=== PATIENT | female | born 1965 | race American Indian/Alaskan Native ===

== ENCOUNTER 2017-02-10 09:39 | Emergency (ER) | payer SELFPAY ==
[2017-02-10 09:48] VITALS: BP 145/77
[2017-02-10] MEDS ORDERED: TORADOL IM ONE (10:53)
--- NOTE | 2017-02-10 15:24 | Emergency Department Report ---
Entered by JEISON SAGE, acting as scribe for HORTENSIA ORELLANA NP. ED Extremity Problem HPI - General Chief complaint: Extremity Problem,Nontraumatic Stated complaint: BILAT KNEE PAIN Time Seen by Provider: 02/10/17 10:16 Source: patient Mode of arrival: Ambulatory Limitations: Physical Limitation - History of Present Illness Initial comments: This is a 51 y/o female patient presents to the ED for evaluation of intermittent bilateral knee pain ongoing for the past month, with the pain becoming worse last night. Pain is exacerbated with weight bearing. She was previously seen at [facility] by Dr. Mathias who ordered x-rays and evaluation of bilateral knee pain. Xray reports states degenerative changes medial, lateral, and patellofemoral compartments right left knee being more pronounced in the left knee. She was told she would likely need to undergo knee replacement surgery. Patient denies following up with her orthopedic doctor. She was prescribed pain medication but she does not remember the name of the medication. Additionally she states the pain was not relieved by this medication. She denies recent surgeries, travels, or long car rides. Denies history of renal failure. No allergies or past medical history reported. She denies following up with an orthopedic physician for symptoms. She denies chest pain, calf pain, fever, chills. swelling, numbness, tingling, stiff neck, headache, abd pain, back pain, trauma, or SOB. No injuries reported and she is ambulating with a cane. MD Complaint: extremity pain -: Gradual, month(s) (1), Last night (worse) Location: bilateral lower extremity, knee -: No myalgia, No fever, No associated dyspnea, No associated chest pain Radiation: none Severity scale (0 -10): 7 Quality: aching Consistency: intermittent Improves with: nothing Worsens with: weight bearing Associated Symptoms: denies other symptoms. denies: chest pain, shortness of breath, fever, myalgias, arthralgias, rash - Related Data Previous Rx's Medication Instructions Recorded Last Taken Type Azithromycin [Zithromax] 500 mg PO QDAY #2 tablet 12/21/13 Unknown Rx Hydrochlorothiazide 25 mg PO QDAY #7 tablet 12/21/13 Unknown Rx Ondansetron [Zofran Odt] 4 mg SL Q6H PRN #8 tab.rapdis 12/21/13 Unknown Rx Oxycodone HCl/Acetaminophen 1 each PO Q6HR PRN #16 tablet 12/21/13 Unknown Rx [Percocet 10-325 mg] metroNIDAZOLE [Flagyl] 500 mg PO Q8H #21 tablet 12/21/13 Unknown Rx Ibuprofen [Motrin 600 MG tab] 600 mg PO Q8H PRN #20 tablet 02/10/17 Unknown Rx Allergies Allergy/AdvReac Type Severity Reaction Status Date / Time No Known Allergies Allergy Verified 02/10/17 09:44 ED Review of Systems Comment: All other systems reviewed and negative Constitutional: no symptoms reported. denies: chills, fever Eyes: denies: eye pain, eye discharge, vision change ENT: denies: ear pain, throat pain Respiratory: no symptoms reported. denies: cough, shortness of breath Cardiovascular: denies: chest pain Endocrine: no symptoms reported Gastrointestinal: denies: abdominal pain, nausea, diarrhea Genitourinary: denies: urgency, dysuria, discharge Musculoskeletal: denies: back pain, joint swelling, arthralgia Skin: denies: rash, change in color Neurological: denies: headache, weakness Psychiatric: denies: anxiety, depression Hematological/Lymphatic: denies: easy bleeding, easy bruising ED Past Medical Hx - Surgical History Additional Surgical History: - Social History Smoking Status: Never Smoker Substance Use Type: None - Medications Home Medications: Home Medications Medication Instructions Recorded Confirmed Last Taken Type Azithromycin [Zithromax] 500 mg PO QDAY #2 tablet 12/21/13 Unknown Rx Hydrochlorothiazide 25 mg PO QDAY #7 tablet 12/21/13 Unknown Rx Ondansetron [Zofran Odt] 4 mg SL Q6H PRN #8 tab.rapdis 12/21/13 Unknown Rx Oxycodone HCl/Acetaminophen 1 each PO Q6HR PRN #16 tablet 12/21/13 Unknown Rx [Percocet 10-325 mg] metroNIDAZOLE [Flagyl] 500 mg PO Q8H #21 tablet 12/21/13 Unknown Rx Ibuprofen [Motrin 600 MG tab] 600 mg PO Q8H PRN #20 tablet 02/10/17 Unknown Rx ED Physical Exam - General Limitations: Physical Limitation General appearance: alert, in no apparent distress - Head Head exam: Present: atraumatic, normocephalic, normal inspection - Eye Eye exam: Present: normal appearance, PERRL, EOMI. Absent: scleral icterus, conjunctival injection, nystagmus, periorbital swelling, periorbital tenderness Pupils: Present: normal accommodation - ENT ENT exam: Present: normal exam, normal orophraynx, TM's normal bilaterally, normal external ear exam. Absent: mucous membranes dry, mucous membranes moist - Neck Neck exam: Present: normal inspection, full ROM. Absent: tenderness, meningismus, lymphadenopathy, thyromegaly - Respiratory Respiratory exam: Present: normal lung sounds bilaterally. Absent: respiratory distress, wheezes, rales, rhonchi, stridor, chest wall tenderness, accessory muscle use, decreased breath sounds, prolonged expiratory - Cardiovascular Cardiovascular Exam: Present: regular rate, normal rhythm, normal heart sounds. Absent: bradycardia, tachycardia, irregular rhythm - GI/Abdominal GI/Abdominal exam: Present: soft, normal bowel sounds. Absent: distended, tenderness, guarding, rebound, rigid - Rectal Rectal exam: Present: deferred - Extremities Exam Extremities exam: Present: normal inspection, full ROM, normal capillary refill. Absent: tenderness, pedal edema, joint swelling, calf tenderness - Expanded Lower Extremity Exam Left Hip exam: Present: normal inspection (bilateal exam), full ROM, pelvic stability. Absent: tenderness, swelling, abrasion, laceration, ecchymosis, deformity, crepidus, dislocation, erythema, external rotation, internal rotation , shortening Upper Leg exam: Present: normal inspection (bilateral exam), full ROM. Absent: tenderness, swelling, abrasion, laceration, ecchymosis, deformity, crepidus, dislocation, erythema Knee exam: Present: normal inspection (bilateral exam), full ROM, full knee extension. Absent: tenderness, swelling, abrasion, laceration, ecchymosis, deformity, crepidus, dislocation, erythema, effusion, pain w/ pronation/ supination, posterior draw sign, pain/laxity with valgus, pain/laxity with varus Lower Leg exam: Present: normal inspection (bilateral exam), full ROM. Absent: tenderness, swelling, abrasion, laceration, ecchymosis, deformity, crepidus, dislocation, erythema, palpable cord, Delano's sign Ankle exam: Present: normal inspection (bilateral exam), full ROM. Absent: tenderness, swelling, abrasion, laceration, ecchymosis, deformity, crepidus, dislocation, erythema, anterior draw sign Foot/Toe exam: Present: normal inspection (bilateral exam), full ROM. Absent: tenderness, swelling, abrasion, laceration, ecchymosis, deformity, crepidus, dislocation, erythema, amputation, puncture wound, foreign body, calcaneal tenderness, tenderness at base of 5th metatarsal, nail avulsion, subungual hematoma Neuro vascular tendon exam: Present: no vascular compromise. Absent: pulse deficit, abnormal cap refill, motor deficit, sensory deficit, extremity cold to touch, pallor, abnormal 2-point discrimination, decreased fine/light touch, foot drop, peroneal nerve deficit, significant pain with passive ROM of distal joint Gait: Positive: observed and limited by pain - Back Exam Back exam: Present: normal inspection, full ROM. Absent: tenderness, CVA tenderness (R), CVA tenderness (L), muscle spasm, paraspinal tenderness, vertebral tenderness, rash noted - Neurological Exam Neurological exam: Present: alert, oriented X3, CN II-XII intact, normal gait, reflexes normal - Psychiatric Psychiatric exam: Present: normal affect, normal mood - Skin Skin exam: Present: warm, dry, intact, normal color ED Course Vital Signs 02/10/17 09:44 Temperature 97.9 F Pulse Rate 80 Blood Pressure 145/77 - Reevaluation(s) Reevaluation #1: 02/10/17 11:28 Patient is able to speak in full sentences with no signs of distress noted. ED Medical Decision Making - Medical Decision Making Ed course: This is a 51-year-old female that presents to the ED c/o of bialteral knee pain] 1- patient was examined by myself. Xray has already been obtained on 01/04/2017 by her PCP. Impression: Degenerative changes. No fractures noted. 2- Patient was instrcuted to RICe therapy and to follow-up with a orthopedic that was referred to the patient in 24 hours or if symptoms such as swelling, joint redness, numbness, tingling, fever, chills, headache, CP, SOB return to the emergency department as soon as possible. 3- Patient received Toradol in the ED and stated pain has significant improved with a level of 2/10 4- patient was d/c with ibuprofen. 5- at time time of discharge, the patient does not seem toxic or ill in appearance. No acute signs of distress noted. Patient agrees to discharge treatment plan of care. No further questions noted by the patient. ED Disposition Clinical Impression: Knee pain, bilateral Qualifiers: Chronicity: chronic Qualified Code(s): M25.561 - Pain in right knee; M25.562 - Pain in left knee; G89.29 - Other chronic pain Disposition: - TO HOME OR SELFCARE Is pt being admited?: No Does the pt Need Aspirin: No Condition: Stable Instructions: Ibuprofen (By mouth), Knee Pain (ED), RICE Therapy (ED) Additional Instructions: follow-up with a orthopedic that was referred to the patient in 24 hours or if symptoms such as swelling, joint redness, numbness, tingling, fever, chills, headache, CP, SOB return to the emergency department as soon as possible. Rest, elevate, ice extremity Take ibuprofen as prescribed as needed for pain Prescriptions: Ibuprofen [Motrin 600 MG tab] 600 mg PO Q8H PRN #20 tablet PRN Reason: Pain Referrals: [facility] [Outside] - 3-5 Days [facility] [Outside] - 3-5 Days PRIMARY [facility]ARE, [Primary Care Provider] - 3-5 Days OBIE SHAHID MD [Staff Physician] - 02/10/17 Forms: Work/School Release Form(ED) This documentation as recorded by the [facility] sherman SHALANE,accurately reflects the service I personally performed and the decisions made by ,HORTENSIA ORELLANA, JORGE.
== END 2017-02-10 12:03 | disposition home or self-care (01) ==
LOC: ED 09:39
DX: M25.562 Pain in left knee (principal); M25.561 Pain in right knee
CPT/HCPCS: 96372; 99282; J1885

== ENCOUNTER 2017-06-26 14:59 | Emergency (ER) | payer OTHER ==
[2017-06-26 15:19] VITALS: BP 154/71
[2017-06-26] MEDS ORDERED: MOTRIN PO ONE (15:34)
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
== END 2017-06-26 18:38 | disposition home or self-care (01) ==
LOC: ED 14:59
DX: S39.012A Strain of muscle, fascia and tendon of lower back, initial encounter (principal); S13.4XXA Sprain of ligaments of cervical spine, initial encounter; V89.2XXA Person injured in unspecified motor-vehicle accident, traffic, initial encounter; Y93.89 Activity, other specified; Y99.8 Other external cause status; Y92.488 Other paved roadways as the place of occurrence of the external cause
CPT/HCPCS: 72040; 72072; 72100; 99282

== ENCOUNTER 2019-06-01 18:05 | Emergency (ER) | payer OTHER ==
[2019-06-01 19:47] VITALS: BP 159/67
--- NOTE | 2019-06-01 19:48 | Event Note ---
ED Screening Note Date of service: 06/01/19 Time: 19:47 ED Screening Note: 53 y o f presents with acute on chronic bilaetral knee pain, states 10/10 pain no ortho visit This initial assessment/diagnostic orders/clinical plan/treatment(s) is/are subject to change based on patients health status, clinical progression and re- assessment by fellow clinical providers in the ED. Further treatment and workup at subsequent clinical providers discretion. Patient/guardian urged not to elope from the ED as their condition may be serious if not clinically assessed and managed. [facility]
[2019-06-01] MEDS ORDERED: KETOROLAC 30 MG/1 ML INJ IM ONE (22:21)
[2019-06-01] MEDS ORDERED: ACETAMINOPHEN 500 MG TAB PO ONE (22:21)
[2019-06-01] MEDS ORDERED: predniSONE 20 MG TAB PO ONE (22:21)
--- NOTE | 2019-06-01 22:52 | Emergency Department Report ---
ED Extremity Problem HPI - General Chief complaint: Extremity Problem,Nontraumatic Stated complaint: BI KNEE PAIN Source: patient Mode of arrival: Ambulatory Limitations: No Limitations - History of Present Illness Initial comments: Patient is a 53-year-old female with a history of chronic polyarticular arthritis, glaucoma and mtl-mzdvcmj-kmqadomme diabetes who p resents to the ED with complaint of acute exacerbation of her chronic knee pain for the last 1 week despite taking xthl-dem-pmwvksd pain medications. Patient denies fall, traumatic injury, numbness or tingling or weakness or lower extremities bilaterally, low back pain, dizziness, heavy lifting, fever and chills. MD Complaint: extremity pain (bilateral knees), joint paint (Bilateral knees) -: Gradual, week(s) (1) Location: bilateral lower extremity (bilateral knee joints) -: Yes arthralgia, No fever, No associated dyspnea, No associated chest pain Radiation: none Severity scale (0 -10): 6 Quality: aching, sharp, constant Consistency: constant Improves with: nothing Worsens with: weight bearing, walking, exertion, palpation Associated Symptoms: denies other symptoms, arthralgias. denies: chest pain, shortness of breath, myalgias - Related Data Previous Rx's Medication Instructions Recorded Last Taken Type Azithromycin [Zithromax] 500 mg PO QDAY #2 tablet 12/21/13 Unknown Rx Ondansetron [Zofran Odt] 4 mg SL Q6H PRN #8 tab.rapdis 12/21/13 Unknown Rx Oxycodone HCl/Acetaminophen 1 each PO Q6HR PRN #16 tablet 12/21/13 Unknown Rx [Percocet 10-325 mg] hydroCHLOROthiazide 25 mg PO QDAY #7 tablet 12/21/13 Unknown Rx [Hydrochlorothiazide] metroNIDAZOLE [Flagyl] 500 mg PO Q8H #21 tablet 12/21/13 Unknown Rx Ibuprofen [Motrin 600 MG tab] 600 mg PO Q8H PRN #20 tablet 02/10/17 Unknown Rx Cyclobenzaprine [Flexeril] 10 mg PO BID PRN #10 tablet 06/26/17 Unknown Rx Ibuprofen [Motrin] 600 mg PO Q8H PRN #30 tablet 06/26/17 Unknown Rx Naproxen 500 mg PO Q12H PRN #30 tablet 06/01/19 Unknown Rx Prednisone [predniSONE 10 mg 10 mg PO .TAPER #21 tab.ds.pk 06/01/19 Unknown Rx (6-Day Pack, 21 Tabs)] traMADol [Ultram] 50 mg PO Q6HR PRN #12 tablet 06/01/19 Unknown Rx Allergies Allergy/AdvReac Type Severity Reaction Status Date / Time No Known Allergies Allergy Verified 02/10/17 09:44 ED Review of Systems ROS: Stated complaint: BI KNEE PAIN Other details as noted in HPI Constitutional: denies: chills, fever Eyes: denies: eye pain, eye discharge, vision change ENT: denies: ear pain, throat pain Respiratory: denies: cough, shortness of breath, wheezing Cardiovascular: denies: chest pain, palpitations Endocrine: no symptoms reported Gastrointestinal: denies: abdominal pain, nausea, diarrhea Genitourinary: denies: urgency, dysuria, discharge Musculoskeletal: arthralgia (bilateral knee pain). denies: back pain, joint swelling Skin: denies: rash, lesions Neurological: denies: headache, weakness, paresthesias Psychiatric: denies: anxiety, depression Hematological/Lymphatic: denies: easy bleeding, easy bruising ED Past Medical Hx - Past Medical History Previous Medical History?: No - Surgical History Past Surgical History?: Yes Additional Surgical History: - Social History Smoking Status: Never Smoker Substance Use Type: None - Medications Home Medications: Home Medications Medication Instructions Recorded Confirmed Last Taken Type Azithromycin [Zithromax] 500 mg PO QDAY #2 tablet 12/21/13 Unknown Rx Ondansetron [Zofran Odt] 4 mg SL Q6H PRN #8 tab.rapdis 12/21/13 Unknown Rx Oxycodone HCl/Acetaminophen 1 each PO Q6HR PRN #16 tablet 12/21/13 Unknown Rx [Percocet 10-325 mg] hydroCHLOROthiazide 25 mg PO QDAY #7 tablet 12/21/13 Unknown Rx [Hydrochlorothiazide] metroNIDAZOLE [Flagyl] 500 mg PO Q8H #21 tablet 12/21/13 Unknown Rx Ibuprofen [Motrin 600 MG tab] 600 mg PO Q8H PRN #20 tablet 02/10/17 Unknown Rx Cyclobenzaprine [Flexeril] 10 mg PO BID PRN #10 tablet 06/26/17 Unknown Rx Ibuprofen [Motrin] 600 mg PO Q8H PRN #30 tablet 06/26/17 Unknown Rx Naproxen 500 mg PO Q12H PRN #30 tablet 06/01/19 Unknown Rx Prednisone [predniSONE 10 mg 10 mg PO .TAPER #21 tab.ds.pk 06/01/19 Unknown Rx (6-Day Pack, 21 Tabs)] traMADol [Ultram] 50 mg PO Q6HR PRN #12 tablet 06/01/19 Unknown Rx ED Physical Exam - General Limitations: No Limitations General appearance: alert, in no apparent distress - Head Head exam: Present: atraumatic, normocephalic, normal inspection - Eye Eye exam: Present: normal appearance, PERRL, EOMI Pupils: Present: normal accommodation - ENT ENT exam: Present: normal exam, normal orophraynx, mucous membranes moist, TM's normal bilaterally, normal external ear exam - Neck Neck exam: Present: normal inspection, full ROM - Respiratory Respiratory exam: Present: normal lung sounds bilaterally. Absent: respiratory distress, wheezes, rales, chest wall tenderness, accessory muscle use, decreased breath sounds - Cardiovascular Cardiovascular Exam: Present: regular rate, normal rhythm, normal heart sounds. Absent: systolic murmur, diastolic murmur, rubs, gallop - GI/Abdominal GI/Abdominal exam: Present: soft, normal bowel sounds. Absent: tenderness, guarding, rebound - Extremities Exam Extremities exam: Present: normal inspection, full ROM, tenderness (bilateral knee tenderness), normal capillary refill. Absent: pedal edema, joint swelling - Back Exam Back exam: Present: normal inspection, full ROM. Absent: tenderness, CVA tenderness (R), CVA tenderness (L), muscle spasm, paraspinal tenderness - Neurological Exam Neurological exam: Present: alert, oriented X3, CN II-XII intact, normal gait, reflexes normal - Psychiatric Psychiatric exam: Present: normal affect, normal mood - Skin Skin exam: Present: warm, dry, intact, normal color. Absent: rash ED Course Vital Signs 06/01/19 19:46 Temperature 98.3 F Pulse Rate 70 Respiratory 18 Rate Blood Pressure 159/67 O2 Sat by Pulse 100 Oximetry - Reevaluation(s) Reevaluation #1: 06/01/19 22:52 This is a 53-year-old [place] female with a history of chronic osteoarthritis who presented to the ED with worsening bilateral knee pain for 1 week. In the ED, patient is alert and oriented 3 and is not in distress. Patient was too difficult pain in the ED on June and medications and advised to follow-up with her primary care physician in 5-7 days for reevaluation or return to the ED immediately if symptoms get worse. ED Medical Decision Making - Medical Decision Making This is a 53-year-old [place] female with a history of chronic osteoarthritis who presented to the ED with worsening bilateral knee pain for 1 week. In the ED, patient is alert and oriented 3 and is not in distress. Patient was too difficult pain in the ED on June and medications and advised to follow-up with her primary care physician in 5-7 days for reevaluation or return to the ED immediately if symptoms get worse. - Differential Diagnosis chronic osteoarthritis; chronic knee pain; muscle strain Critical care attestation.: If time is entered above; I have spent that time in minutes in the direct care of this critically ill patient, excluding procedure time. ED Disposition Clinical Impression: Chronic osteoarthritis, Chronic pain of both knees Disposition: TO HOME OR SELFCARE Is pt being admited?: No Does the pt Need Aspirin: No Condition: Stable Instructions: Arthralgia (ED), Osteoarthritis (ED), Knee Pain (ED) Additional Instructions: Take medication with food, drink plenty of fluids and follow-up with your primary care physician in 7-10 days for reevaluation. Return to the ED immediately if symptoms get course Prescriptions: Naproxen 500 mg PO Q12H PRN #30 tablet PRN Reason: Pain , Severe (7-10) Prednisone [predniSONE 10 mg (6-Day Pack, 21 Tabs)] 10 mg PO .TAPER #21 tab.ds.pk traMADol [Ultram] 50 mg PO Q6HR PRN #12 tablet PRN Reason: Pain Referrals: [facility] [Outside] - 3-5 Days Time of Disposition: 22:50 Print Language: CHINESE
== END 2019-06-01 23:19 | disposition home or self-care (01) ==
LOC: ED 18:05
DX: M17.0 Bilateral primary osteoarthritis of knee (principal); G89.29 Other chronic pain; M25.561 Pain in right knee; M25.562 Pain in left knee
CPT/HCPCS: 96372; 99282; J1885; J7512

== ENCOUNTER 2021-03-02 13:07 | Emergency (ER) | payer MEDICARE, SELFPAY ==
[2021-03-02 13:19] VITALS: BP 142/74
--- NOTE | 2021-03-02 15:13 | Emergency Department Report ---
ED Lower Extremity HPI - General Chief Complaint: Extremity Injury, Lower Stated Complaint: bilateral knee pain Time Seen by Provider: 03/02/21 15:08 Source: patient Mode of arrival: Ambulatory Limitations: No Limitations - History of Present Illness Initial Comments: 55-year-old female presents to the ER today with complaints of bilateral knee pain. Patient states that she was walking from the kitchen to her bedroom. She states that there is a step down between her kitchen in her bedroom and when she went to step down, she missed and landed on both knees. She states that this occurred this morning. She denies any head injury. She states that since she fell she has been having pain diffusely to both knees with associated swelling and she thinks there is some bruising to the knee. She states that she applied ice and heat but she did not take anything for the pain. She does admit that she has a history of osteoarthritis in both knees. She denies any prior knee surgeries. She reports no other symptoms at this time. MD Complaint: knee injury -: Sudden, This morning - Related Data Previous Rx's Medication Instructions Recorded Last Taken Type Ondansetron [Zofran Odt] 4 mg SL Q6H PRN #8 tab.rapdis 12/21/13 Unknown Rx hydroCHLOROthiazide 25 mg PO QDAY #7 tablet 12/21/13 Unknown Rx [Hydrochlorothiazide] Cyclobenzaprine [Flexeril] 10 mg PO BID PRN #10 tablet 06/26/17 Unknown Rx Acetaminophen [Acetaminophen 8 650 mg PO Q8HR #20 tablet.er 03/02/21 Unknown Rx Hour] Naproxen 500 mg PO Q12H PRN #30 tablet 03/02/21 Unknown Rx Allergies Allergy/AdvReac Type Severity Reaction Status Date / Time No Known Allergies Allergy Verified 03/02/21 13:16 ED Review of Systems ROS: Stated complaint: bilateral knee pain Other details as noted in HPI Comment: All other systems reviewed and negative Constitutional: denies: chills, fever Eyes: denies: eye pain, eye discharge, vision change ENT: denies: ear pain, throat pain Respiratory: denies: cough, shortness of breath, SOB with exertion, SOB at rest, wheezing Musculoskeletal: joint swelling, arthralgia Neurological: denies: headache, weakness, paresthesias Psychiatric: denies: anxiety, depression, auditory hallucinations, visual hallucinations, homicidal thoughts, suicidal thoughts Hematological/Lymphatic: denies: easy bleeding, easy bruising ED Past Medical Hx - Past Medical History Hx Diabetes: Yes - Surgical History Additional Surgical History: - Social History Smoking Status: Never Smoker Substance Use Type: None - Medications Home Medications: Home Medications Medication Instructions Recorded Confirmed Last Taken Type Ondansetron [Zofran Odt] 4 mg SL Q6H PRN #8 tab.rapdis 12/21/13 Unknown Rx hydroCHLOROthiazide 25 mg PO QDAY #7 tablet 12/21/13 Unknown Rx [Hydrochlorothiazide] Cyclobenzaprine [Flexeril] 10 mg PO BID PRN #10 tablet 06/26/17 Unknown Rx Acetaminophen [Acetaminophen 8 650 mg PO Q8HR #20 tablet.er 03/02/21 Unknown Rx Hour] Naproxen 500 mg PO Q12H PRN #30 tablet 03/02/21 Unknown Rx ED Physical Exam - General Limitations: No Limitations General appearance: alert, in no apparent distress, obese - Head Head exam: Present: atraumatic, normocephalic, normal inspection - Respiratory Respiratory exam: Absent: respiratory distress - Cardiovascular Cardiovascular Exam: Present: regular rate - Expanded Lower Extremity Exam Left Knee exam: Present: normal inspection, full ROM (Full range of motion of the knee but there is some pain on flexion extension.), tenderness (Diffuse tenderness to palpation), full knee extension. Absent: swelling, abrasion, laceration, ecchymosis, deformity, crepidus, dislocation, erythema, effusion Neuro vascular tendon exam: Present: no vascular compromise Gait: Positive: observed and limited by pain Right Knee exam: Present: full ROM (She does have full range of motion of the knee, but there is some pain with range of motion.), tenderness (Diffuse tenderness to palpation to the knee), full knee extension. Absent: swelling, abrasion, laceration, ecchymosis, deformity, crepidus, dislocation, erythema, effusion Neuro vascular tendon exam: Present: no vascular compromise Gait: Positive: observed and limited by pain - Neurological Exam Neurological exam: Present: alert, oriented X3, CN II-XII intact. Absent: motor sensory deficit - Psychiatric Psychiatric exam: Present: normal affect, normal mood ED Course Vital Signs 03/02/21 13:16 Temperature 98.3 F Pulse Rate 90 Respiratory 18 Rate Blood Pressure 142/74 O2 Sat by Pulse 94 Oximetry ED Lower Extremity MDM - Radiology Data Radiology results: report reviewed Patient: DARYA WANG MR#: [id number] : 1965 Acct:[id number] Age/Sex: 55 / F ADM Date: 03/02/21 Loc: ED Attending Dr: Ordering Physician: KO KHAN Date of Service: 03/02/21 Procedure(s): XR knee BILAT 3V Accession Number(s): [id number] cc: KO KHAN Fluoro Time In Minutes: BILATERAL KNEE 3 VIEW(S) INDICATION / CLINICAL INFORMATION: fall onto knees/pain COMPARISON: None available. FINDINGS: BONES / JOINT(S): No acute fracture. There are moderate to severe tricompartmental degenerative changes of both knees. Degenerative changes are especially severe in the left patellofemoral joint. SOFT TISSUES: No significant abnormality. ADDITIONAL FINDINGS: None. Signer Name: Yaya Taylor MD Signed: 03/02/2021 4:31 PM Workstation Name: [id number] Transcribed By: DB Dictated By: YAYA TAYLOR MD Electronically Authenticated By: YAYA TAYLOR MD Signed Date/Time: 03/02/21 163 DD/ 1629 TD/TT: Critical care attestation.: If time is entered above; I have spent that time in minutes in the direct care of this critically ill patient, excluding procedure time. ED Disposition Clinical Impression: Knee contusion, DJD (degenerative joint disease) of knee Disposition: DC-01 TO HOME OR SELFCARE Is pt being admited?: No Does the pt Need Aspirin: No Condition: Stable Instructions: Osteoarthritis, Contusion, Szau-oh-Dkam Additional Instructions: Take the naproxen as prescribed to help with pain. You can alternate it with tylenol arthritis. I recommend follow-up with pulmonary disease specialist in the next 1 to 2 weeks if your symptoms persist. Return to the ER if your symptoms changes or worsens in any way. Prescriptions: Acetaminophen [Acetaminophen 8 Hour] 650 mg PO Q8HR #20 tablet.er Naproxen 500 mg PO Q12H PRN #30 tablet PRN Reason: Pain , Severe (7-10) Referrals: OBIE SHAHID MD [Staff Physician] - 7-10 days Time of Disposition: 16:38
--- NOTE | 2021-03-02 16:35 | XRay Report ---
BILATERAL KNEE 3 VIEW(S) INDICATION / CLINICAL INFORMATION: fall onto knees/pain COMPARISON: None available. FINDINGS: BONES / JOINT(S): No acute fracture. There are moderate to severe tricompartmental degenerative escobar es of both knees. Degenerative changes are especially severe in the left patellofemoral joint. SOFT TISSUES: No significant abnormality. ADDITIONAL FINDINGS: None. Signer Name: Yaya Taylor MD Signed: 03/02/2021 4:31 PM Workstation Name: [id number]
== END 2021-03-02 16:46 | disposition home or self-care (01) ==
LOC: ED 13:07
DX: S80.02XA Contusion of left knee, initial encounter (principal); S80.01XA Contusion of right knee, initial encounter; M17.0 Bilateral primary osteoarthritis of knee; E11.8 Type 2 diabetes mellitus with unspecified complications; Z98.890 Other specified postprocedural states; W17.89XA Other fall from one level to another, initial encounter; Y93.01 Activity, walking, marching and hiking; Y92.090 Kitchen in other non-institutional residence as the place of occurrence of the external cause; Y99.8 Other external cause status
CPT/HCPCS: 99283

== ENCOUNTER 2021-05-15 06:51 | Emergency (ER) | payer MEDICARE ==
[2021-05-15 06:59] VITALS: BP 147/78
[2021-05-15] MEDS ORDERED: IBUPROFEN 800 MG TAB PO ONE (07:58)
[2021-05-15] MEDS ORDERED: LIDOCAINE VISCOUS 2% 15 ML ORAL LIQD MM ONE (07:59)
--- NOTE | 2021-05-15 08:50 | Emergency Department Report ---
ED ENT HPI - General Chief complaint: Sore Throat Stated complaint: SORE THROAT Time Seen by Provider: 05/15/21 07:12 Source: patient Mode of arrival: Ambulatory Limitations: No Limitations - History of Present Illness Initial comments: This is a 55-year-old female nontoxic, well nourished in appearance, no acute signs of distress presents to the ED with c/o of sore throat x 1 day. Patient describes sore throat as aching. Patient denies any fever, chills, headache, stiff neck, nausea, vomiting, chest pain, shortness of breath, numbness or tingling. Patient denies any drooling or hoarseness. Patient denies any allergies. MD complaint: sore throat -: days(s) (1) Location: throat Severity: mild Severity scale (0 -10): 3 Quality: aching Consistency: intermittent Improves with: none Worsens with: swallowing Associated Symptoms: pain with swallowing, sore throat. denies: fever, cough, gum swelling, toothache, tinnitus, hearing loss, discharge from ear, rhinorrhea - Related Data Previous Rx's Medication Instructions Recorded Last Taken Type Ondansetron [Zofran Odt] 4 mg SL Q6H PRN #8 tab.rapdis 12/21/13 Unknown Rx hydroCHLOROthiazide 25 mg PO QDAY #7 tablet 12/21/13 Unknown Rx [Hydrochlorothiazide] Cyclobenzaprine [Flexeril] 10 mg PO BID PRN #10 tablet 06/26/17 Unknown Rx Acetaminophen [Acetaminophen 8 650 mg PO Q8HR #20 tablet.er 03/02/21 Unknown Rx Hour] Naproxen 500 mg PO Q12H PRN #30 tablet 03/02/21 Unknown Rx Naproxen 500 mg PO Q12H PRN #12 tablet 05/15/21 Unknown Rx Nystas/Diphen/Xyl Visc/Mylanta 15 ml MM Q8H PRN 5 Days #1 bottle 05/15/21 Unknown Rx [Magic Mouthwash] Allergies Allergy/AdvReac Type Severity Reaction Status Date / Time No Known Allergies Allergy Verified 03/02/21 13:16 ED Dental HPI - General Chief complaint: Sore Throat Stated complaint: SORE THROAT Time Seen by Provider: 05/15/21 07:12 Source: patient Mode of arrival: Ambulatory Limitations: No Limitations - Related Data Previous Rx's Medication Instructions Recorded Last Taken Type Ondansetron [Zofran Odt] 4 mg SL Q6H PRN #8 tab.rapdis 12/21/13 Unknown Rx hydroCHLOROthiazide 25 mg PO QDAY #7 tablet 12/21/13 Unknown Rx [Hydrochlorothiazide] Cyclobenzaprine [Flexeril] 10 mg PO BID PRN #10 tablet 06/26/17 Unknown Rx Acetaminophen [Acetaminophen 8 650 mg PO Q8HR #20 tablet.er 03/02/21 Unknown Rx Hour] Naproxen 500 mg PO Q12H PRN #30 tablet 03/02/21 Unknown Rx Naproxen 500 mg PO Q12H PRN #12 tablet 05/15/21 Unknown Rx Nystas/Diphen/Xyl Visc/Mylanta 15 ml MM Q8H PRN 5 Days #1 bottle 05/15/21 Unknown Rx [Magic Mouthwash] Allergies Allergy/AdvReac Type Severity Reaction Status Date / Time No Known Allergies Allergy Verified 03/02/21 13:16 ED Review of Systems ROS: Stated complaint: SORE THROAT Other details as noted in HPI Comment: All other systems reviewed and negative Constitutional: denies: chills, fever Eyes: denies: eye pain, eye discharge, vision change ENT: throat pain. denies: ear pain, dental pain, hearing loss, epistaxis, congestion Respiratory: denies: cough, shortness of breath, wheezing Cardiovascular: denies: chest pain, palpitations Endocrine: no symptoms reported Gastrointestinal: denies: abdominal pain, nausea, diarrhea Genitourinary: denies: urgency, dysuria, discharge Musculoskeletal: denies: back pain, joint swelling, arthralgia Skin: denies: rash, lesions Neurological: denies: headache, weakness, paresthesias Psychiatric: denies: anxiety, depression Hematological/Lymphatic: denies: easy bleeding, easy bruising ED Past Medical Hx - Past Medical History Previous Medical History?: Yes Hx Diabetes: Yes Additional medical history: osteo arthrytis - Surgical History Past Surgical History?: Yes Additional Surgical History: - Social History Smoking Status: Never Smoker Substance Use Type: None - Medications Home Medications: Home Medications Medication Instructions Recorded Confirmed Last Taken Type Ondansetron [Zofran Odt] 4 mg SL Q6H PRN #8 tab.rapdis 12/21/13 Unknown Rx hydroCHLOROthiazide 25 mg PO QDAY #7 tablet 12/21/13 Unknown Rx [Hydrochlorothiazide] Cyclobenzaprine [Flexeril] 10 mg PO BID PRN #10 tablet 06/26/17 Unknown Rx Acetaminophen [Acetaminophen 8 650 mg PO Q8HR #20 tablet.er 03/02/21 Unknown Rx Hour] Naproxen 500 mg PO Q12H PRN #30 tablet 03/02/21 Unknown Rx Naproxen 500 mg PO Q12H PRN #12 tablet 05/15/21 Unknown Rx Nystas/Diphen/Xyl Visc/Mylanta 15 ml MM Q8H PRN 5 Days #1 bottle 05/15/21 Unknown Rx [Magic Mouthwash] ED Physical Exam - General Limitations: No Limitations General appearance: alert, in no apparent distress - Head Head exam: Present: atraumatic, normocephalic - Eye Eye exam: Present: normal appearance - Expanded ENT Exam Expanded Ear exam: Present: normal external inspection Mouth exam: Present: normal external inspection, tongue normal. Absent: drooling, trismus, muffled voice Teeth exam: Present: normal inspection Throat exam: Positive: normal inspection, other (uvula midline). Negative: tonsillar erythema, tonsillomegaly, tonsillar exudate, R peritonsillar mass, L peritonsillar mass - Neck Neck exam: Present: normal inspection, full ROM. Absent: tenderness, meningismus, lymphadenopathy - Respiratory Respiratory exam: Absent: respiratory distress - Cardiovascular Cardiovascular Exam: Present: regular rate - Extremities Exam Extremities exam: Present: full ROM - Back Exam Back exam: Present: full ROM - Neurological Exam Neurological exam: Present: alert, oriented X3, normal gait - Psychiatric Psychiatric exam: Present: normal affect, normal mood - Skin Skin exam: Present: warm, dry, intact, normal color. Absent: rash ED Course Vital Signs 05/15/21 05/15/21 06:56 08:06 Temperature 97.8 F Pulse Rate 73 Respiratory 17 18 Rate Blood Pressure 147/78 O2 Sat by Pulse 94 Oximetry - Reevaluation(s) Reevaluation #1: 05/15/21 08:55 Patient is speaking in full sentences with no signs of distress noted. ED Medical Decision Making - Lab Data Lab Results 05/15/21 Range/Units Unknown Group A Strep Rapid Negative (Negative) - Medical Decision Making This is a 55-year-old female that presents with viral pharyngitis. Patient is stable was examined by me. There is no drooling. No tonsillar abscess noted. Uvula is midline. Negative strep swab. Vital signs are stable. Patient is not febrile and normal heart rate. Patient was instructed to Follow-up with a primary care doctor in 3-5 days or if symptoms worsen and continue return to emergency room as soon as possible. At time of discharge, the patient does not seem toxic or ill in appearance. No acute signs of distress noted. Patient agrees to discharge treatment plan of care. No further questions noted by the patient. Critical care attestation.: If time is entered above; I have spent that time in minutes in the direct care of this critically ill patient, excluding procedure time. ED Disposition Clinical Impression: Viral pharyngitis Disposition: 01 HOME / SELF CARE / HOMELESS Is pt being admited?: No Does the pt Need Aspirin: No Condition: Stable Instructions: Viral Respiratory Infection, [id number]-Czdx Additional Instructions: Follow-up with a primary care doctor in 3-5 days or if symptoms worsen and continue return to emergency room as soon as possible. Prescriptions: Nystas/Diphen/Xyl Visc/Mylanta [Magic Mouthwash] 15 ml MM Q8H PRN 5 Days #1 vishnu le PRN Reason: Sore Throat Naproxen 500 mg PO Q12H PRN #12 tablet PRN Reason: Pain , Severe (7-10) Referrals: PRIMARY MD LILIA [Referring] - 3-5 Days MATILDE SINCLAIR MD [Staff Physician] - 3-5 Days Forms: Work/School Release Form(ED) Time of Disposition: 08:57
== END 2021-05-15 09:20 | disposition home or self-care (01) ==
LOC: ED 06:51
DX: J02.8 Acute pharyngitis due to other specified organisms (principal)
CPT/HCPCS: 87116; 87430; 99283

== ENCOUNTER 2022-01-14 14:03 | Emergency (ER) | payer MEDICARE ==
--- NOTE | 2022-01-14 19:48 | Emergency Department Report ---
ED Rash HPI - HPI Chief Complaint: Skin Rash Stated Complaint: RED SIMPSON ON BI LEG Rash Symptoms: No Itching, No Facial Swelling, No Tongue/Oral Swelling, No Breathing Difficulties, No Choking Sensation, No Wheezing/Dyspnea, No Peeling, No Blistering, No Fever, No Lightheaded, No Malaise, No Myalgias Severity: mild Other History: 56-year-old female presents with erythema rash noted to the bilateral her bilateral leg. She states that she has a history of lymphedema. She states that she was sitting at home with her leg propped up when she noticed to erythematous indentation to her bilateral lower extremity. Denies any pain or pruritus to the area. States that she possibly could have been bitten by something. Patient denies any fever or chills at present time. No acute distress noted. No ill appearance noted. Patient is alert and oriented x3. ED Review of Systems ROS: Stated complaint: RED SIMPSON ON BI LEG Other details as noted in HPI Constitutional: denies: chills, fever Eyes: denies: eye pain, eye discharge, vision change ENT: denies: ear pain, throat pain Respiratory: denies: cough, shortness of breath, wheezing Cardiovascular: denies: chest pain, palpitations Endocrine: no symptoms reported Gastrointestinal: denies: abdominal pain, nausea, diarrhea Genitourinary: denies: urgency, dysuria, discharge Musculoskeletal: denies: back pain, joint swelling, arthralgia Skin: rash. denies: lesions Neurological: denies: headache, weakness, paresthesias Psychiatric: denies: anxiety, depression Hematological/Lymphatic: denies: easy bleeding, easy bruising ED Past Medical Hx - Past Medical History Previous Medical History?: Yes Hx Diabetes: Yes Additional medical history: osteo arthrytis - Surgical History Past Surgical History?: Yes Additional Surgical History: - Social History Smoking Status: Never Smoker Substance Use Type: None - Medications Home Medications: Home Medications Medication Instructions Recorded Confirmed Last Taken Type Ondansetron [Zofran Odt] 4 mg SL Q6H PRN #8 tab.rapdis 12/21/13 Unknown Rx hydroCHLOROthiazide 25 mg PO QDAY #7 tablet 12/21/13 Unknown Rx [Hydrochlorothiazide] Cyclobenzaprine [Flexeril] 10 mg PO BID PRN #10 tablet 06/26/17 Unknown Rx Acetaminophen [Acetaminophen 8 650 mg PO Q8HR #20 tablet.er 03/02/21 Unknown Rx Hour] Naproxen 500 mg PO Q12H PRN #30 tablet 03/02/21 Unknown Rx Naproxen 500 mg PO Q12H PRN #12 tablet 05/15/21 Unknown Rx Nystas/Diphen/Xyl Visc/Mylanta 15 ml MM Q8H PRN 5 Days #1 bottle 05/15/21 Unknown Rx [Magic Mouthwash] cephALEXin [Keflex] 500 mg PO Q12HR 10 Days #20 cap 01/14/22 Unknown Rx predniSONE [Deltasone] 20 mg PO QDAY #3 tab 01/14/22 Unknown Rx Rash Exam - Exam General: Vital signs noted. No distress. Alert and acting appropriately. HEENT: No Periorbital Edema, No Conjuctival Injection, No Chemosis, No Perioral Edema, No Tongue Edema, No Uvular Edema, No Compromised Airway, No Drooling Lungs: Yes Good Air Exchange (Normal Breath Sounds), No Wheezes, No Ronchi, No Stridor, No Cough, No Labored Respirations, No Retractions, No Use of Accessory Muscles, No Other Abnormal Lung Sounds Heart: Yes Regular, No Murmur Skin: Yes Urticarial Rash, Yes Erythema, No Maculopapular Rash, No Morbilliform rash, No Bulla(e), No Excoriations, No Weeping, No Tenderness, No Edema, No Encrustations, No Other Other: Positive: Abdomen Normal, Neurologic Normal, Musculoskeletal Normal ED Course Vital Signs 01/14/22 16:28 Temperature 98.2 F Pulse Rate 74 Respiratory 20 Rate Blood Pressure 150/85 [Right] O2 Sat by Pulse 99 Oximetry ED Medical Decision Making - Medical Decision Making 56-year-old female presents with erythema rash noted to the bilateral her bilateral leg. She states that she has a history of lymphedema. She states that she was sitting at home with her leg propped up when she noticed to erythematous indentation to her bilateral lower extremity. Denies any pain or pruritus to the area. States that she possibly could have been bitten by something. Patient denies any fever or chills at present time. No acute distress noted. No ill appearance noted. Patient is alert and oriented x3. Physical examination patient has mild erythema rash noted to her bilateral extremity. Rechecked the patient is resting quietly quietly and comfortable and feeling better. I discussed the results of diagnostic study, my clinical impression and the plan for further treatment with the patient. Patient agrees with plan and discharge at this present time. All question addressed. I have given the patient instruction regarding a diagnosis ,expectation ,follow- up and return precaution. I explained to the patient that emergent condition may arise and to return to the ED for new worsen and any new persisting condition. I have explained the importance of following up with the primary care physician or referral physician listed below has instructed. The patient verbalized understanding of discharge instruction. Critical care attestation.: If time is entered above; I have spent that time in minutes in the direct care of this critically ill patient, excluding procedure time. ED Disposition Clinical Impression: Rash Disposition: 01 HOME / SELF CARE / HOMELESS Is pt being admited?: No Does the pt Need Aspirin: No Condition: Stable Instructions: Rash, Adult Additional Instructions: Take medication as prescribed Return to the ED for any worsening symptoms Prescriptions: predniSONE [Deltasone] 20 mg PO QDAY #3 tab cephALEXin [Keflex] 500 mg PO Q12HR 10 Days #20 cap Referrals: [facility] [Provider Group] - 3-5 Days Forms: Work/School Release Form(ED) Time of Disposition: 20:02
[2022-01-14 20:46] VITALS: BP 144/72
== END 2022-01-14 20:46 | disposition home or self-care (01) ==
LOC: ED 14:03
DX: R21 Rash and other nonspecific skin eruption (principal); E11.9 Type 2 diabetes mellitus without complications
CPT/HCPCS: 99282